=== PATIENT | female | born 2000 | race Caucasian/White ===

== ENCOUNTER 2023-05-03 06:00 | Outpatient (RCR) | payer OTHER, BC, SELFPAY | END 2023-05-10 23:59 | disposition home or self-care (01) | LOC: GPT 06:00 | PROVIDERS: Visit Provider Physician Assistant | DX: M25.561 Pain in right knee (principal) | CPT/HCPCS: 97110; 97112; 97140; 97161 ==

== ENCOUNTER 2023-05-11 06:00 | Outpatient (RCR) | payer OTHER, BC, SELFPAY | END 2023-05-15 23:59 | disposition home or self-care (01) | LOC: GPT 06:00 | PROVIDERS: Visit Provider Physician Assistant | DX: M25.561 Pain in right knee (principal) | CPT/HCPCS: 97110; 97112; 97140 ==

== ENCOUNTER 2023-06-12 06:00 | Outpatient (RCR) | payer OTHER, SELFPAY | END 2023-07-11 23:59 | disposition home or self-care (01) | LOC: GPT 06:00 | PROVIDERS: Visit Provider Physician Assistant | DX: M23.611 Other spontaneous disruption of anterior cruciate ligament of right knee (principal) | CPT/HCPCS: 97110; 97112; 97116; 97140; 97162; 97530; G0283 ==

== ENCOUNTER 2023-07-12 06:00 | Outpatient (RCR) | payer OTHER, SELFPAY | END 2023-08-10 23:59 | disposition home or self-care (01) | LOC: GPT 06:00 | PROVIDERS: Visit Provider Physician Assistant | DX: M23.611 Other spontaneous disruption of anterior cruciate ligament of right knee (principal) | CPT/HCPCS: 97110; 97112; 97116; 97140; 97530 ==

== ENCOUNTER 2023-08-11 06:00 | Outpatient (RCR) | payer OTHER, SELFPAY | END 2023-09-10 23:59 | disposition home or self-care (01) | LOC: GPT 06:00 | PROVIDERS: Visit Provider Physician Assistant | DX: Z98.890 Other specified postprocedural states (principal) | CPT/HCPCS: 97110; 97112; 97140; 97530 ==

== ENCOUNTER 2023-09-11 06:00 | Outpatient (RCR) | payer OTHER, SELFPAY | END 2023-10-10 23:59 | disposition home or self-care (01) | LOC: GPT 06:00 | PROVIDERS: Visit Provider Physician Assistant | DX: M23.611 Other spontaneous disruption of anterior cruciate ligament of right knee (principal) | CPT/HCPCS: 97110; 97112; 97164; 97530 ==

== ENCOUNTER 2023-10-11 06:00 | Outpatient (RCR) | payer OTHER, SELFPAY | END 2023-11-10 23:59 | disposition home or self-care (01) | LOC: GPT 06:00 | PROVIDERS: Visit Provider Physician Assistant | DX: M23.611 Other spontaneous disruption of anterior cruciate ligament of right knee (principal) | CPT/HCPCS: 97110; 97112; 97530 ==

== ENCOUNTER 2023-11-11 06:00 | Outpatient (RCR) | payer OTHER, SELFPAY | END 2023-12-11 23:59 | disposition home or self-care (01) | LOC: GPT 06:00 | PROVIDERS: Visit Provider Physician Assistant | DX: Z47.89 Encounter for other orthopedic aftercare (principal) | CPT/HCPCS: 97110 ==

== ENCOUNTER → 2024-03-06 13:51 | Outpatient (BNVA) | payer BC, SELFPAY | PROVIDERS: Visit Provider Emergency Medicine | DX: N39.0 Urinary tract infection, site not specified (principal) | CPT/HCPCS: 81000; 87077; 87086; 87184 ==